=== PATIENT | male | born 1940 | race Caucasian/White ===

== ENCOUNTER 2017-03-21 18:01 | Emergency (ER) | payer BC, MEDICARE ==
[2017-03-21 19:20] VITALS: BP 138/55
--- NOTE | 2017-03-21 19:56 | UC ---
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 -house is very warm and sleeps with blankets. no fevers or chills. no streaks. - History of Current Complaint Chief Complaint: UCRash Time Seen by Provider: 03/21/17 19:33 Stated Complaint: RASH ON ARMS/LEG - Allergy/Home Medications Allergies/Adverse Reactions: Allergies Allergy/AdvReac Type Severity Reaction Status Date / Time No Known Allergies Allergy Verified 03/21/17 19:21 Home Medications: Home Medications Albuterol HFA INHALER* [Ventolin HFA Inhaler*] 2 puff INH Q4H PRN 03/21/17 [ History Confirmed 03/21/17] Aspirin TAB* [Aspirin 325 MG TAB*] 325 mg PO DAILY 03/21/17 [History Confirmed 03/21/17] Atorvastatin* [Lipitor 40 MG*] 40 mg PO QPM 03/21/17 [History Confirmed 03/21/17 ] Budesonide/Formote 160/4.5(NF) [Symbicort 160/4.5 (NF)] 2 puff INH DAILY [History Confirmed 03/21/17] Enalapril(NF) [Enalapril (NF)] 10 mg PO DAILY 03/21/17 [History Confirmed ] Isosorbide Mononitrate ER TAB* [Imdur ER TAB*] 30 mg PO DAILY 03/21/17 [History Confirmed 03/21/17] Metoprolol Tartrate TAB* [Lopressor TAB*] 50 mg PO DAILY 03/21/17 [History Confirmed 03/21/17] Montelukast Sodium TAB* [Singulair 10 MG TAB*] 10 mg PO DAILY 03/21/17 [History Confirmed 03/21/17] Nitroglycerin TAB 0.4 MG* 0.4 mg SL . NEEDED PRN 03/21/17 [History Confirmed 03/21/17] Review of Systems Constitutional: Negative Skin: Rash, Other - itchy, dry skin Eyes: Negative ENT: Negative Respiratory: Negative Cardiovascular: Negative Gastrointestinal: Negative Genitourinary: Negative Motor: Negative Neurovascular: Negative Musculoskeletal: Negative Neurological: Negative Psychological: Negative Is Patient Immunocompromised?: No All Other Systems Reviewed And Are Negative: Yes PMH/Surg Hx/FS Hx/Imm Hx Previously Healthy: Yes Endocrine History: Dyslipidemia Cardiovascular History: Cardiac Disease, Hypertension - Surgical History Surgical History: Yes Surgery Procedure, Year, and Place: open heart surgery, hernia - Family History Known Family History: Positive: Hypertension - Social History Alcohol Use: Daily Alcohol Amount: generally 4-5 beers daily Substance Use Type: None Smoking Status (MU): Former Smoker When Did the Patient Quit Smoking/Using Tobacco: 30 + years - Immunization History Most Recent Influenza Vaccination: [id number] Physical Exam Triage Information Reviewed: Yes Appearance: Well-Appearing, No Pain Distress, Well-Nourished - very pleasant as is his . Vital Signs: Initial Vital Signs Temp 97.7 F 03/21/17 19:14 Pulse 72 03/21/17 19:14 Resp 18 03/21/17 19:14 BP 138/55 03/21/17 19:14 Pulse Ox 98 03/21/17 19:14 Vital Signs Reviewed: Yes ENT Exam: Normal Neck exam: Normal Neck: Positive: Supple, Nontender, No Lymphadenopathy Respiratory: Positive: Lungs clear Cardiovascular Exam: Normal Cardiovascular: Positive: RRR, No Murmur Skin: Positive: rashes - widespread rash over b/l arms and legs (more so on flexor surfaces), abdomen, flanks (within arms reach). There is no rash at all on his upper back. nearly bleeding from many lesions. no tracking lesions. none in finger webs. Course/Dx - Course Course Of Treatment: Rash is likely d/t excessive scractching and dry skin. extesnively discussed prevention of dry skin and frequent application of moisturizing ointments and creams. -there is no rash at all on his upper back, although it i quite profound in areas that he can easily scratch to the point he is bleeding from areas. he is actively scratching as I am talking to him as well. If sx dont improve consider derm. they are very agreeable w/ this plan. - Differential Diagnoses - Skin Complaint Differential Diagnoses: Cellulitis, Contact Dermatitis, Drug Rash, Eczema, Scabies - Diagnoses Provider Diagnoses: xerosis, excessive scratching, pruritis Discharge - Discharge Plan Condition: Stable Disposition: HOME Patient Education Materials: Eczema (ED) Referrals: Cherelle Guardado MD [Primary Care Provider] - Additional Instructions: Your skin is very dry, especially from the cold weather, heat in the house and the hot showers you are taking. I don't know that you have eczema or just very dry skin, but treatment can be very similar. It is very important that you keep the skin very moisturized. Avoid hot showers, only luke warm. Dont rub your skin dry with the towel, just pat it dry. Apply either aquaphor or cerave cream immediately after getting out of shower to lock in the moisture. Avoid scratching your skin. You can sleep with socks or gloves on your hands to avoid scratching in your sleep. -Aquaphor & cerave cream (works better than lotion).
== END 2017-03-21 20:16 | disposition home or self-care (01) ==
LOC: UCCORT 18:01
DX: L85.3 Xerosis cutis (principal); L29.9 Pruritus, unspecified; E78.5 Hyperlipidemia, unspecified; I10 Essential (primary) hypertension; Z87.891 Personal history of nicotine dependence; Z79.82 Long term (current) use of aspirin
CPT/HCPCS: 99202; G0463

== ENCOUNTER 2018-05-06 17:53 | Emergency (ER) | payer MEDICARE ==
[2018-05-06 18:28] VITALS: BP 154/54
--- NOTE | 2018-05-06 19:08 | UC ---
Knee Pain HPI - HPI Summary HPI Summary: Pt presents with c/o left knee pain, swelling and bruising after falling last week at store. Pt had left knee replaced in September 2017 and has regis palcement. pt concerned about increased tenderness, bruising on foot and pain. - History of Current Complaint Chief Complaint: UCLowerExtremity Stated Complaint: LEFT KNEE/FOOT CONCERN Time Seen by Provider: 05/06/18 18:42 Hx Obtained From: Patient Onset/Duration: Gradual Onset, Lasting Hours, Still Present, Worse Since - onset Severity Initially: Moderate Severity Currently: Moderate Pain Intensity: 5 Character: Dull, Aching, Stiffness Aggravating Factor(s): Movement, Weight Bearing, Prolonged Standing, Stairs Alleviating Factor(s): Nothing Associated Signs And Symptoms: Positive: Swelling, Redness Able to Bear Weight: Yes - Risk Factors Septic Arthritis Risk Factor: Extremes of Age, Prosthesis Gout Risk Factor: Male - Allergies/Home Medications Allergies/Adverse Reactions: Allergies Allergy/AdvReac Type Severity Reaction Status Date / Time No Known Allergies Allergy Verified 05/06/18 18:28 Home Medications: Home Medications Cyanocobalamin (Vitamin B-12) [Vitamin B-12] 1,000 mcg PO DAILY 05/06/18 [ History Confirmed 05/06/18] PMH/Surg Hx/FS Hx/Imm Hx Previously Healthy: Yes Cardiovascular History: Cardiac Disease, Hypertension Respiratory History: Asthma - Surgical History Surgical History: Yes Surgery Procedure, Year, and Place: open heart surgery, hernia, Left knee replacement - Family History Known Family History: Positive: Hypertension - Social History Occupation: Retired Lives: With Family Alcohol Use: Daily Alcohol Amount: generally 4-5 beers daily Substance Use Type: None Smoking Status (MU): Former Smoker Have You Smoked in the Last Year: No When Did the Patient Quit Smoking/Using Tobacco: 30 + years - Immunization History Most Recent Influenza Vaccination: [id number] Review of Systems All Other Systems Reviewed And Are Negative: Yes Constitutional: Positive: Negative Skin: Positive: Bruising, Other - abrasion left knee, erythema surrounding left knee abrasion, Eyes: Positive: Negative ENT: Positive: Negative Respiratory: Positive: Negative Cardiovascular: Positive: Negative Gastrointestinal: Positive: Negative Genitourinary: Positive: Negative Motor: Positive: Decreased ROM - left knee Neurovascular: Positive: Negative Musculoskeletal: Positive: Arthralgia, Decreased ROM, Edema, Myalgia Neurological: Positive: Negative Psychological: Positive: Negative Is Patient Immunocompromised?: No Physical Exam Triage Information Reviewed: Yes Appearance: Well-Appearing Vital Signs: Initial Vital Signs Temp 98.8 F 05/06/18 18:23 Pulse 73 05/06/18 18:23 Resp 20 05/06/18 18:23 BP 154/54 05/06/18 18:23 Pulse Ox 99 05/06/18 18:23 Vital Signs Reviewed: Yes Eye Exam: Normal ENT Exam: Normal Neck exam: Normal Respiratory: Positive: Wheezing Musculoskeletal: Positive: ROM Limited @ - left knee, Edema @ - left knee Neurological Exam: Normal Psychological Exam: Normal Skin Exam: Other - abrasion, left knee, with granulated tissue and erythema surroundingwound. ecchymosis left lateral foot. Diagnostics - Radiology No standard instances Radiology Interpretation Completed By: ED Physician - No acute fracture, prostethis is place, Radiology di dnot read prior to discharge Knee Pain Course/Dx - Differential Dx/Diagnosis Differential Diagnosis/HQI/PQRI: Contusion, Infection Provider Diagnosis: Wound infection, Left knee pain Discharge - Sign-Out/Discharge Documenting (check all that apply): Patient Departure All imaging exams completed and their final reports reviewed: No - Discharge Plan Condition: Stable Disposition: HOME Prescriptions: Cephalexin CAP* [Keflex 500 CAP*] 500 mg PO Q6H #40 cap Patient Education Materials: Wound Infection (ED), Knee Pain (ED) Referrals: Cherelle Guadrado MD [Primary Care Provider] - If Needed David VASQUEZ,Marshall Marmolejo [Medical Doctor] - As Soon As Possible - Billing Disposition and Condition Condition: STABLE Disposition: Home
--- NOTE | 2018-05-07 15:14 | UC ---
- EKG/XRAY/CT Xray Comments: wet read correct Course/Dx - Diagnoses Provider Diagnoses: Wound infection, Left knee pain Discharge - Sign-Out/Discharge Documenting (check all that apply): Post-Discharge Follow Up All imaging exams completed and their final reports reviewed: Yes - Discharge Plan Condition: Stable Disposition: HOME Prescriptions: Cephalexin CAP* [Keflex 500 CAP*] 500 mg PO Q6H #40 cap Patient Education Materials: Wound Infection (ED), Knee Pain (ED) Referrals: Cherelle Guardado MD [Primary Care Provider] - If Needed David VASQUEZ,Marshall Marmolejo [Medical Doctor] - As Soon As Possible - Billing Disposition and Condition Condition: STABLE Disposition: Home
== END 2018-05-06 19:33 | disposition home or self-care (01) ==
LOC: UCCORT 17:53
DX: T84.54XA Infection and inflammatory reaction due to internal left knee prosthesis, initial encounter (principal); M25.562 Pain in left knee; Y83.8 Other surgical procedures as the cause of abnormal reaction of the patient, or of later complication, without mention of misadventure at the time of the procedure
CPT/HCPCS: 99212; G0463

== ENCOUNTER 2018-08-06 13:31 | Emergency (ER) | payer MEDICARE ==
[2018-08-06 13:39] VITALS: BP 159/75
--- NOTE | 2018-08-06 14:05 | UC ---
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 Onset/Duration Of Injury/Symptoms: Days - 1 Mechanism Of Injury: No Known Trauma Timing: Constant Onset/Duration: Gradual Onset, Lasting Days - 1, Still Present Severity: Severe Pain Intensity: 10 Location: Discrete At: - neck Character: Aching, Stiff Aggravating Factors: Movement Alleviating Factors: Nothing Associated Signs & Symptoms: Negative: Swelling, Redness, Bruising, Fever, Nuchal Rigity, Weakness, Headache, Paresthesia - Allergies/Home Medications Allergies/Adverse Reactions: Allergies Allergy/AdvReac Type Severity Reaction Status Date / Time acetaminophen [From Percocet] AdvReac Altered Verified 08/06/18 13:45 Mental Status oxycodone [From Percocet] AdvReac Altered Verified 08/06/18 13:45 Mental Status Home Medications: Home Medications Gabapentin CAP(*) [Neurontin 400 mg CAP(*)] 400 mg PO TID 08/06/18 [History Confirmed 08/06/18] PMH/Surg Hx/FS Hx/Imm Hx Endocrine History: Diabetes Cardiovascular History: Cardiac Disease, Hypertension, Myocardial Infarction Respiratory History: COPD - Surgical History Surgical History: Yes Surgery Procedure, Year, and Place: open heart surgery, hernia, Left knee replacement - Family History Known Family History: Positive: Hypertension - Social History Alcohol Use: Rare Alcohol Amount: generally 4-5 beers daily Substance Use Type: None Smoking Status (MU): Former Smoker Have You Smoked in the Last Year: No When Did the Patient Quit Smoking/Using Tobacco: 30 + years - Immunization History Most Recent Influenza Vaccination: [id number] Review of Systems All Other Systems Reviewed And Are Negative: Yes Constitutional: Positive: Negative Skin: Positive: Negative Eyes: Positive: Negative ENT: Positive: Negative Respiratory: Positive: Shortness Of Breath Cardiovascular: Negative: Palpitations, Chest Pain Is Patient Immunocompromised?: No Physical Exam Triage Information Reviewed: Yes Appearance: Well-Appearing, Well-Nourished, Pain Distress Vital Signs: Initial Vital Signs Temp 98.0 F 08/06/18 13:36 Pulse 98 08/06/18 13:36 Resp 24 08/06/18 13:36 BP 159/75 08/06/18 13:36 Pulse Ox 97 08/06/18 13:36 Vital Signs Reviewed: Yes Eye Exam: Normal Eyes: Positive: Conjunctiva Clear ENT: Positive: Normal ENT inspection, Hearing grossly normal, Pharynx normal Neck: Positive: Tenderness @, Other: - stiff/ limited ROM on flexion , extension , rotation , Respiratory: Positive: Chest non-tender, Lungs clear, Normal breath sounds, No respiratory distress Cardiovascular: Positive: RRR, No Murmur, Pulses Normal Skin Exam: Normal Diagnostics - EKG Cardiac Rate: NL Cardiac Rhythm: Sinus: Normal Neck Pain Course/Dx - Differential Dx/Diagnosis Provider Diagnosis: Neck strain Discharge - Sign-Out/Discharge Documenting (check all that apply): Patient Departure All imaging exams completed and their final reports reviewed: No Studies - Discharge Plan Condition: Stable Disposition: HOME Prescriptions: Metaxalone TAB* [Skelaxin TAB*] 800 mg PO BID #14 tab Patient Education Materials: Acute Neck Pain (ED) Referrals: Cherelle Guardado MD [Primary Care Provider] - 5 Days Additional Instructions: muscle strain neck cont. with rest, use heating pads , stretching take Tylenol as needed for pain follow up with your pcp in 5 days please go to ED if getting worse - Billing Disposition and Condition Condition: STABLE Disposition: Home
== END 2018-08-06 14:07 | disposition home or self-care (01) ==
LOC: UCCORT 13:31
DX: S16.1XXA Strain of muscle, fascia and tendon at neck level, initial encounter (principal); E11.9 Type 2 diabetes mellitus without complications; I10 Essential (primary) hypertension; I25.2 Old myocardial infarction; Z88.5 Allergy status to narcotic agent; Z87.891 Personal history of nicotine dependence; X58.XXXA Exposure to other specified factors, initial encounter; Y92.9 Unspecified place or not applicable
CPT/HCPCS: 93005; 99212; G0463